=== PATIENT | male | born 1995 ===

== ENCOUNTER 2019-10-06 02:38 | Emergency (ER) | payer OTHER ==
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
[2019-10-06] MEDS ORDERED: Bacitracin OINTMENT* 0.5% 0.5 oz TUBE TOPICAL ONE (04:18)
[2019-10-06] MEDS ORDERED: Acetaminophen TAB* 325 MG PO ONE (04:19)
[2019-10-06 04:41] VITALS: BP 126/78
== END 2019-10-06 04:40 | disposition home or self-care (01) ==
LOC: ED 02:38
DX: S52.602A Unspecified fracture of lower end of left ulna, initial encounter for closed fracture (principal); S09.90XA Unspecified injury of head, initial encounter; V19.9XXA Pedal cyclist (driver) (passenger) injured in unspecified traffic accident, initial encounter; Y93.55 Activity, bike riding; Y92.9 Unspecified place or not applicable
CPT/HCPCS: 99282; A9270-GY